=== PATIENT | male | born 1970 | race Caucasian/White ===

== ENCOUNTER 2022-05-16 11:27 | Inpatient (IN) | payer SELFPAY ==
[~2022-05-16] VITALS: Ht 188 cm; Wt 69.5 kg
[2022-05-16 11:50] VITALS: BP 120/84
[2022-05-16 13:25] LABS: BASO # 0.1 10*3/uL (0.0-0.1); BASO % 1.1 % (0.0-1.0); EOS # 0.1 10*3/uL (0.0-0.4); EOS % 0.9 % (1.0-4.0); HEMATOCRIT 43.5 % (42.0-52.0); LYMPH # 1.8 10*3/uL (1.3-4.4); LYMPH % 19.6 % (27.0-41.0); MEAN CELL VOLUME 92.8 fl (80.0-94.0); MEAN CORPUSCULAR HGB 31.8 pg (27.0-31.0); MEAN CORPUSCULAR HGB CONC 34.3 g/dl (33.0-37.0); MEAN PLATELET VOLUME 9.4 fl (9.6-12.3); MONO # 0.7 10*3/uL (0.1-1.0); MONO % 7.9 % (3.0-9.0); NEUT # 6.6 10*3/uL (2.3-7.9); NEUT % 70.2 % (47.0-73.0); PLATELET COUNT AUTOMATED 299 10*3/uL (130-400); RED BLOOD COUNT 4.69 10*6/uL (4.50-5.90); RED CELL DISTRI WIDTH 15.4 % (0-14.5); WHITE BLOOD COUNT 9.3 10*3/uL (4.8-10.8)
[2022-05-16 13:33] LABS: INTERNATIONAL NORM RATIO 0.9 (2.0-3.5)
[2022-05-16 13:42] LABS: ALKALINE PHOSPHATASE 58 U/L (45-117); BUN 8 mg/dl (7-24); CHLORIDE 102 mmol/L (98-107); CREATININE 0.84 mg/dL (0.70-1.30); LIPASE 126 U/L (73-393); SGOT/AST 31 IU/L (3-35); SGPT/ALT 35 U/L (12-78); SODIUM 137 mmol/L (136-145); TOTAL PROTEIN 7.3 gm/dL (6.4-8.2)
[2022-05-16 18:00] VITALS: BP 112/65
[2022-05-16 20:25] VITALS: BP 102/61
[2022-05-16 21:20] VITALS: BP 114/77
[2022-05-17] VITALS: BP 110/70
[2022-05-17 06:11] LABS: BUN 10 mg/dl (7-24); CHLORIDE 105 mmol/L (98-107); CHOLESTEROL 157 mg/dL (<200); CREATININE 0.89 mg/dL (0.70-1.30); POTASSIUM 4.2 mmol/L (3.5-5.1); SGOT/AST 23 IU/L (3-35); SGPT/ALT 29 U/L (12-78); SODIUM 140 mmol/L (136-145); TOTAL PROTEIN 6.5 gm/dL (6.4-8.2); TRIGLYCERIDES 94 mg/dl (<150)
[2022-05-17 06:13] LABS: ALKALINE PHOSPHATASE 50 U/L (45-117); LDL CHOLESTEROL 42 mg/dL (9-159)
[2022-05-17 06:30] LABS: BASO # 0.1 10*3/uL (0.0-0.1); BASO % 1.7 % (0.0-1.0); EOS # 0.3 10*3/uL (0.0-0.4); HEMATOCRIT 43.4 % (42.0-52.0); LYMPH # 2.1 10*3/uL (1.3-4.4); LYMPH % 28.6 % (27.0-41.0); MEAN CELL VOLUME 94.8 fl (80.0-94.0); MEAN CORPUSCULAR HGB 31.7 pg (27.0-31.0); MEAN CORPUSCULAR HGB CONC 33.4 g/dl (33.0-37.0); MONO # 0.9 10*3/uL (0.1-1.0); MONO % 11.9 % (3.0-9.0); NEUT # 3.8 10*3/uL (2.3-7.9); NEUT % 53.5 % (47.0-73.0); PLATELET COUNT AUTOMATED 286 10*3/uL (130-400); RED BLOOD COUNT 4.58 10*6/uL (4.50-5.90); RED CELL DISTRI WIDTH 15.5 % (0-14.5); WHITE BLOOD COUNT 7.2 10*3/uL (4.8-10.8)
[2022-05-17 08:00] VITALS: BP 119/82
[2022-05-17 12:00] VITALS: BP 115/77
[2022-05-17 16:00] VITALS: BP 120/78
== END 2022-05-17 17:33 | disposition home or self-care (01) | DRG 313 ==
LOC: ED 11:27 → EDHOLD 14:22 → 4E 14:22 → EDHOLD 14:51 → 4E 20:29
PROVIDERS: Emergency Medicine; Internal Medicine; ADMIT Internal Medicine; ATTEND Internal Medicine
PROC: 4A02XM4 Measurement of Cardiac Total Activity, External Approach (ICD-10-PCS; principal; 2022-05-17)
PROC: 3E073KZ Introduction of Other Diagnostic Substance into Coronary Artery, Percutaneous Approach (ICD-10-PCS; 2022-05-17)
DX: R07.9 Chest pain, unspecified (principal); E83.41 Hypermagnesemia; F12.10 Cannabis abuse, uncomplicated; F10.10 Alcohol abuse, uncomplicated; Z79.82 Long term (current) use of aspirin; Z79.899 Other long term (current) drug therapy; Z71.6 Tobacco abuse counseling

== ENCOUNTER → 2022-06-28 | Outpatient (CLI) | payer MEDICAID ==
[2022-06-28 12:22] LABS: FREE T4 1.19 ng/dl (0.89-1.76); THYROID STIM HORMONE (HS) 1.131 uIU/ml (0.550-4.780)
== END | disposition home or self-care (01) ==
LOC: LAB 11:03
PROVIDERS: ATTEND Family Medicine
DX: R53.83 Other fatigue (principal); R63.4 Abnormal weight loss

== ENCOUNTER 2023-04-06 08:52 | Emergency (ER) | payer MEDICAID ==
[~2023-04-06] VITALS: Ht 1706 cm; Wt 77.1 kg
[2023-04-06] MEDS ORDERED: MELOXICAM15 MG PO (09:17)
[2023-04-06] MEDS ORDERED: AMOX-CLAV 875-1 EACH PO (09:17)
== END 2023-04-06 09:48 | disposition home or self-care (01) ==
LOC: ED 08:52
DX: K02.9 Dental caries, unspecified (principal); K04.7 Periapical abscess without sinus; K08.89 Other specified disorders of teeth and supporting structures; H92.01 Otalgia, right ear; F12.10 Cannabis abuse, uncomplicated; F17.290 Nicotine dependence, other tobacco product, uncomplicated; F10.10 Alcohol abuse, uncomplicated